=== PATIENT | female | born 1980 | race African-American/Black ===

== ENCOUNTER 2017-11-08 12:29 | Outpatient (CLI) | payer OTHER | END 2017-11-08 12:30 | disposition home or self-care (01) | LOC: DTY/OP 12:29 | PROVIDERS: ATTEND Surgery | DX: Z48.815 Encounter for surgical aftercare following surgery on the digestive system (principal); I10 Essential (primary) hypertension; E66.01 Morbid (severe) obesity due to excess calories; Z98.84 Bariatric surgery status | CPT/HCPCS: 97802 ==

== ENCOUNTER 2017-11-28 13:02 | Outpatient (CLI) | payer OTHER ==
--- NOTE | 2017-11-28 13:17 | RAD ---
TWO VIEWS CHEST: Comparison: None. History: Dyspnea. FINDINGS: Two views of the chest show normal sized cardiomediastinal silhouette. There is no evidence of consol idation, mass, or pleural effusion. The bones are unremarkable. IMPRESSION: No evidence of acute cardiopulmonary disease. POS: [facility]
== END 2017-11-28 13:03 | disposition home or self-care (01) ==
LOC: RAD 13:02
PROVIDERS: ATTEND Internal Medicine
DX: R06.00 Dyspnea, unspecified (principal)
CPT/HCPCS: 71046

== ENCOUNTER 2017-12-20 16:58 | Outpatient (CLI) | payer OTHER ==
--- NOTE | 2017-12-20 17:40 | RAD ---
SINUS FOUR VIEWS: 12/20/17 HISTORY: Frontal sinus pain x2 months. The frontal sinus is somewhat hypoplastic. The frontal sphenoid, ethmoid, and maxillary sinuses appea r clear without any fluid or mucosal change. IMPRESSION: Negative sinuses. POS: [facility]
== END 2017-12-20 16:59 | disposition home or self-care (01) ==
LOC: SCSRAD 16:58
PROVIDERS: ATTEND Internal Medicine
DX: J32.9 Chronic sinusitis, unspecified (principal)
CPT/HCPCS: 70220

== ENCOUNTER 2020-06-27 09:43 | Outpatient (CLI) | payer MEDICAID ==
--- NOTE | 2020-06-27 10:48 | MMO ---
Bilateral MAMMO Bilat Screen [facility]DI. CLINICAL HISTORY: Patient is 39 years old and is seen for screening. The patient has the following family history of breast cancer: maternal aunt, malignant (generic). The patient has no personal history of cancer. VIEWS: The views performed were: bilateral craniocaudal and bilateral mediolateral oblique. FILMS COMPARED: The present examination has been compared to a prior imaging study performed at [facility] on 10/05/2016. This study has been interpreted with the assistance of computer-aided detection. MAMMOGRAM FINDINGS: There are scattered fibroglandular densities. There are no suspicious masses, suspicious calcifications, or new areas of architectural distortion. IMPRESSION: THERE IS NO MAMMOGRAPHIC EVIDENCE OF MALIGNANCY. A ROUTINE FOLLOW-UP MAMMOGRAM IN 1 YEAR IS RECOMMENDED. ACR BI-RADS Category 1 - Negative MAMMOGRAPHY NOTE: 1. A negative mammogram report should not delay a biopsy if a dominant of clinically suspicious mass is present. 2. Approximately 10% to 15% of breast cancers are not detected by mammography. 3. Adenosis and dense breasts may obscure an underlying neoplasm. Reported by: KEDAR COOK MD Electonically Signed: [id number]
== END 2020-06-27 09:44 | disposition home or self-care (01) ==
LOC: BICMAMMO 09:43
PROVIDERS: ATTEND Obstetrics & Gynecology
DX: Z12.31 Encounter for screening mammogram for malignant neoplasm of breast (principal); Z80.3 Family history of malignant neoplasm of breast
CPT/HCPCS: 77067